=== PATIENT | male | born 1995 | race Caucasian/White ===

== ENCOUNTER 2017-06-21 18:01 | Observation (INO) | payer SELFPAY, OTHER ==
[~2017-06-21 18:01] MED LIST: ISOVUE-370 76%-LOCM 1 ML ONE
[2017-06-21] MEDS ORDERED: diphenhydrAMINE 50 MG/ML VIAL ONE (18:23)
[2017-06-21] MEDS ORDERED: Haloperidol Lactate 5 MG/ML VIAL ONE (18:23)
[2017-06-21 19:01] LABS: #Basophils 0.1 thou/uL (0.0-0.2); #Lymphocytes 1.8 thou/uL (1.20-3.40); #Monocytes 0.7 thou/uL (0.11-0.59); #Neutrophils 10.7 thou/uL (1.40-6.50); %Basophils 0.7 % (0.0-1.0); %Eosinophils 0.3 % (0.0-10.0); %Lymphocytes 13.4 % (21.0-51.0); %Monocytes 5.2 % (0.0-10.0); %Neutrophils 80.4 % (42.0-75.0); Hemoglobin 17.6 g/dL (14.0-18.0); Mean Corpuscular HGB CONC 34.2 g/dL (32.0-36.0); Mean Corpuscular Hemoglobin 33.3 pg (27.0-31.0); Mean Corpuscular Volume 97.1 fl (80.0-94.0); Mean Platelet Volume 9.4 fL (7.4-10.4); Platelet Count 216 thou/uL (130-400); RBC Distribution Width 11.5 % (11.5-14.5); Red Blood Cell (RBC) Count 5.28 mill/uL (4.70-6.10); White Blood Cell (WBC) Count 13.3 thou/uL (4.8-10.8)
[2017-06-21 19:23] LABS: ALT (SGPT) 62 U/L (8-55); AST (SGOT) 72 U/L (5-34); Albumin 4.2 g/dL (3.5-5.0); Alcohol 332 mg/dL (Less than 10); Alkaline Phosphatase 92 U/L (40-150); Anion Gap 16 mmol/L (10-20); BUN (Urea Nitrogen) 11 mg/dL (8.9-20.6); Bilirubin, Total 0.3 mg/dL (0.2-1.2); Calc. Creatinine Clearance 0 mL/min (70-130); Calcium 8.7 mg/dL (7.8-10.44); Carbon Dioxide 19 mmol/L (22-29); Chloride 105 mmol/L (98-107); Estimated GFR-MDRD Greater than 90; Glucose 131 mg/dL (70-105); Lipase 80 U/L (8-78); Potassium 3.8 mmol/L (3.5-5.1); Protein, Total 7.2 g/dL (6.0-8.3); Sodium 136 mmol/L (136-145)
[2017-06-21] MEDS ORDERED: Lidocaine 4% Cream 5 GM TUBE w/ Tegaderm ONE (19:41)
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
[2017-06-21 19:49] LABS: Bilirubin Negative (Negative); Glucose, Urine (Dipstick) Negative (Negative); Leukocyte Negative (Negative); Nitrite Negative (Negative); Protein, Urine (Dipstick) Negative (Neg-Trace); Urobilinogen 0.2 mg/dL (0.2-1.0)
[2017-06-21 19:50] LABS: Clarity Clear (Clear)
[2017-06-21 19:51] LABS: Specific Gravity, Urine 1.005 (1.002-1.036)
[2017-06-21 19:57] LABS: Amphetamine Not Detected (NotDetected); Barbiturates Screen Not Detected (NotDetected); Benzodiazepine Screen Not Detected (NotDetected); Cocaine Metabolite Screen Not Detected (NotDetected); Medtox Control Line Valid? VALID (VALID); Medtox Reader # READER 1; Methadone Not Detected (NotDetected); Methamphetamine Not Detected (NotDetected); Opiate Screen Not Detected (NotDetected); Oxycodone Screen Not Detected (NotDetected); Phencyclidine (PCP) Not Detected (NotDetected); THC/Cannabinoid Screen Not Detected (NotDetected); Tricyclic Screen Not Detected (NotDetected)
[2017-06-21 20:00] LABS: Bacteria/HPF None Seen HPF (None Seen); Blood, Urine Negative (Negative); Hyaline Casts/LPF 0-3 HYALINE CAST LPF (0-3 Hyaline); RBC/HPF 0-3 HPF (0-3); Squamous Epithelial 0-3 HPF (0-3); WBC/HPF 0-3 HPF (0-3)
[2017-06-21] MEDS ORDERED: Lidocaine 1% w/Epinephrine 1:200K 30 ML VIAL ONE (20:01)
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
[2017-06-21] MEDS ORDERED: Adacel (T-DAP) 0.5 ML VIAL ONE (23:07)
[2017-06-21 23:10] LABS: CKMB 5.7 ng/mL (0-6.6)
[2017-06-21 23:13] LABS: Troponin I 0.412 ng/mL (< 0.028)
[2017-06-22] MEDS ORDERED: Ondansetron ODT 4 MG TAB PO PRN (00:29)
[2017-06-22] MEDS ORDERED: traMADol HCl 50 MG TAB PO PRN ×2 (00:29)
[2017-06-22] MEDS ORDERED: Dextrose 50% Abboject 50 ML SYRINGE SLOW IVP PRN (00:29)
[2017-06-22] MEDS ORDERED: hydrALAZINE 20 MG/ML VIAL SLOW IVP PRN (00:29)
[2017-06-22] MEDS ORDERED: Dextrose 5% in Water 1,000 ML IV PRN (00:29)
[2017-06-22] MEDS ORDERED: Ondansetron HCl/PF 4 MG/2 ML Vial IVP PRN (00:29)
[2017-06-22] MEDS ORDERED: Sodium Chloride 0.9% 1,000 ML IV SCH (00:29)
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
[2017-06-22] MEDS ORDERED: Scopolamine 1.5 mg/72 hour Patch TD SCH (01:00)
[2017-06-22] MEDS: Acetaminophen 500 MG TAB PO SCH ×3 (02:24→14:15)
[2017-06-22] MEDS: Ibuprofen 800 MG TAB PO SCH ×2 (02:24→09:12)
[2017-06-22 05:07] LABS: Anion Gap 12 mmol/L (10-20); BUN (Urea Nitrogen) 10 mg/dL (8.9-20.6); Calc. Creatinine Clearance 147 mL/min (70-130); Calcium 8.3 mg/dL (7.8-10.44); Carbon Dioxide 24 mmol/L (22-29); Chloride 108 mmol/L (98-107); Estimated GFR-MDRD Greater than 90; Glucose 140 mg/dL (70-105); Potassium 3.9 mmol/L (3.5-5.1); Sodium 140 mmol/L (136-145)
[2017-06-22 05:10] LABS: CKMB 5.4 ng/mL (0-6.6)
[2017-06-22] MEDS: Sodium Chloride 0.9% 1,000 ML IV SCH ×2 (07:32→12:38)
[2017-06-22 08:42] VITALS: BMI 25.4
[2017-06-22] MEDS ORDERED: Folic Acid 1 MG TAB PO SCH (09:00)
[2017-06-22] MEDS ORDERED: Famotidine 20 MG TAB PO SCH (09:00)
[2017-06-22] MEDS ORDERED: Multivitamin W/ Minerals 1 TAB PO SCH (09:00)
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
[2017-06-22 11:27] VITALS: BP 120/59; TEMP 97.8
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
--- NOTE | 2017-06-22 15:44 | RAD ---
3 VIEW LEFT FOOT: Date: 06/22/17 INDICATION: Left heel pain, swelling. FINDINGS: No fracture or dislocation identified of the left foot. No radiopaque foreign bodies. There is a bifi d fibula and great toe sesamoid. IMPRESSION: No acute osseous abnormality of the left foot. POS: [facility]
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
--- NOTE | 2017-06-24 05:45 | EKG ---
Test Reason : Blood Pressure : / mmHG Vent. Rate : 084 BPM Atrial Rate : 084 BPM P-R Int : 148 ms QRS Dur : 086 ms QT Int : 336 ms P-R-T Axes : 040 076 037 degrees QTc Int : 397 ms Normal sinus rhythm Normal ECG No previous ECGs available Confirmed by PRIYA BENSON ([id number]) on 06/24/2017 5:45:17 AM Referred By: CJ Confirmed By:PRIYA BENSON
--- NOTE | 2017-06-24 12:59 | EKG ---
Test Reason : CHEST PAIN Blood Pressure : / mmHG Vent. Rate : 116 BPM Atrial Rate : 116 BPM P-R Int : 156 ms QRS Dur : 084 ms QT Int : 316 ms P-R-T Axes : 056 084 040 degrees QTc Int : 439 ms Sinus tachycardia Possible Left atrial enlargement Nonspecific ST abnormality Abnormal ECG Confirmed by RONAL BOO ([id number]), industrial editor TAWNYA SHERIFF ([id number]) on 06/24/2017 12:58:44 PM Referred By: Confirmed By:RONAL BOO
--- NOTE | 2017-06-24 12:59 | EKG ---
Test Reason : Blood Pressure : / mmHG Vent. Rate : 106 BPM Atrial Rate : 106 BPM P-R Int : 174 ms QRS Dur : 088 ms QT Int : 342 ms P-R-T Axes : 049 090 035 degrees QTc Int : 454 ms Sinus tachycardia Possible Left atrial enlargement Rightward axis Borderline ECG Confirmed by RONAL BOO ([id number]), online editor TAWNYA SHERIFF ([id number]) on 06/24/2017 12:58:41 PM Referred By: Confirmed By:RONAL BOO
== END 2017-06-22 15:38 | disposition home or self-care (01) ==
LOC: ERS 18:01 → SURG B 23:32 → 2SW 06-22 08:19
PROVIDERS: ADMIT Surgery; ATTEND Surgery
DX: F10.129 Alcohol abuse with intoxication, unspecified (principal); S01.81XA Laceration without foreign body of other part of head, initial encounter; S01.21XA Laceration without foreign body of nose, initial encounter; R00.0 Tachycardia, unspecified; S62.307A Unspecified fracture of fifth metacarpal bone, left hand, initial encounter for closed fracture; G89.11 Acute pain due to trauma; F43.10 Post-traumatic stress disorder, unspecified; F90.9 Attention-deficit hyperactivity disorder, unspecified type; F17.210 Nicotine dependence, cigarettes, uncomplicated; F12.10 Cannabis abuse, uncomplicated; R79.89 Other specified abnormal findings of blood chemistry; F32.9 Major depressive disorder, single episode, unspecified; V49.40XA Driver injured in collision with unspecified motor vehicles in traffic accident, initial encounter; Y90.8 Blood alcohol level of 240 mg/100 ml or more
CPT/HCPCS: 12011; 26605; 36415; 70450; 71010; 71260; 72125; 74177; 80048; 80053; 80306; 80307; 81003; 82553; 83690; 84484; 85025; 90471; 90715; 93005; 93010; 93306; 96361; 96372; 96374; G0378; G8978-GP-CJ; G8979-GP-CJ; G8980-GP-CJ; J1200; J1630

== ENCOUNTER 2017-06-23 09:27 | Emergency (ER) | payer SELFPAY ==
[2017-06-23] MEDS ORDERED: HYDROcodone/Acetaminophen 10/325 mg Tablet ONE (10:32)
[2017-06-23 10:54] LABS: Bilirubin Negative (Negative); Blood, Urine Trace (Negative); Glucose, Urine (Dipstick) Negative (Negative); Ketone, Urine Negative (Negative); Nitrite Negative (Negative); Protein, Urine (Dipstick) Negative (Neg-Trace)
[2017-06-23 10:56] LABS: Bacteria/HPF None Seen HPF (None Seen); Hyaline Casts/LPF 0-3 HYALINE CAST LPF (0-3 Hyaline); Squamous Epithelial None Seen HPF (0-3); WBC/HPF 0-3 HPF (0-3)
--- NOTE | 2017-06-23 11:03 | ULT ---
TESTICULAR ULTRASOUND: HISTORY: Scrotal pain. FINDINGS: The right testicle has an abnormal echotexture. The right testicle is very heterogeneous, and there is a focal area of hypoechogenicity seen in the mid right testicle, measuring approximately 1.1 x 0.5 cm. The left testicle is homogeneous. Color Doppler with spectral analysis demonstrates blood flow to both testicles. There appears to be hypervascular flow to the right testicle. Small right hydrocele. There is a small left varicocele with numerous vessels showing with color Doppler within the scrotum. IMPRESSION: 1. The right testicle is abnormal. The right testicle is heterogeneous, and there is a focal hypoec hoic region within the right testicle. There is hypervascular flow to the right testicle and a small right hydrocele. Findings could represent right orchitis with developing abcess; however, recommend clinical correlation and close followup. A urologic consultation is recommended. 2. Evidence of a small left varicocele. POS: [facility]
[2017-06-23] MEDS ORDERED: cefTRIAXone\\ROCEPHIN 250 MG VIAL ONE (13:29)
[2017-06-23] MEDS ORDERED: Lidocaine 1% PF 5 ML VIAL ONE (13:29)
[2017-06-23] MEDS ORDERED: Azithromycin 250 MG TAB ONE (13:29)
== END 2017-06-23 14:20 | disposition home or self-care (01) ==
LOC: ERS 09:27
DX: N45.2 Orchitis (principal); F43.10 Post-traumatic stress disorder, unspecified; F17.200 Nicotine dependence, unspecified, uncomplicated
CPT/HCPCS: 36415; 76870; 81003; 81015; 82105; 83615; 84702; 87086; 87491; 87591; 93976; 96372; 99406; J0696; J2001